=== PATIENT | male | born 1950 | race Hispanic/Latino ===

== ENCOUNTER 2020-02-17 14:02 | Emergency (ER) | payer MEDICARE ==
[2020-02-17] MEDS ORDERED: LIDOCAINE 1%/EPINEPHRINE 1:100,000 VIAL (20 ML) INFILTRATI ONE (14:10)
[2020-02-17] MEDS ORDERED: LIDOCAINE 1%/EPINEPHRINE 1:100,000 VIAL (20 ML) INFILTRATI NR (15:00)
--- NOTE | 2020-02-17 16:05 | Cat Scan Report ---
CT HEAD WITHOUT CONTRAST INDICATION / CLINICAL INFORMATION: Trauma. Patient fell sustaining head injury. Iatrogenic coagulopathy secondary to Plavix. TECHNIQUE: All CT scans at this location are performed using CT dose reduction for ALARA by means of automated e xposure control. COMPARISON: None available. FINDINGS: HEMORRHAGE: No evidence of intracranial hemorrhage or extra-axial fluid collection. EXTRA-AXIAL SPACES: Cortical sulci and sylvian fissures are enlarged reflecting a degree of parenchym al volume loss which is greater than expected for the patient's age. Basilar cisterns have an unremar kable appearance. VENTRICULAR SYSTEM: The third and lateral ventricles are enlarged out of proportion to the cortical s ulci. This probably reflects the presence of central greater than cortical atrophy. CEREBRAL PARENCHYMA: Periventricular and deep white matter lucency is observed. This is probably seco ndary to microvascular ischemic change. There is evidence of remote small deep infarction in the left gangliocapsular region and in the subinsular area on the right. MIDLINE SHIFT OR HERNIATION: There is no mass effect. CEREBELLUM / BRAINSTEM: Brainstem and cerebellum have an unremarkable appearance. INTRACRANIAL VESSELS:Calcified atherosclerotic plaque is present along the course of the cavernous se gments of both internal carotid arteries. Similar findings are seen at the distal vertebral arteries. ORBITS: Patient is status post bilateral cataract surgery. No additional abnormalities are observed o n evaluation of the orbits. SOFT TISSUES of HEAD: No significant abnormality. CALVARIUM: Evaluation of bone windows reveals no abnormalities. PARANASAL SINUSES / MASTOID AIR CELLS: Paranasal sinuses are free from inflammatory mucosal disease. Mastoid air cells are normally pneumatized. ADDITIONAL FINDINGS: None. IMPRESSION: 1. Central greater than cortical parenchymal volume loss greater than expected for patient's age of [age] years. 2. 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 3. No acute intracranial abnormality. Signer Name: Jose Pappas MD Signed: 02/17/2020 4:00 PM Workstation Name: [id number]
--- NOTE | 2020-02-17 16:52 | Emergency Department Report ---
ED Palpitations HPI - General Chief Complaint: Fall Stated Complaint: HEAD LAC/FELL STANDING POSITION Time Seen by Provider: 02/17/20 14:28 Source: patient, EMS Mode of arrival: Stretcher Limitations: No Limitations - History of Present Illness Initial Comments: Patient is a 69-year-old male who is on Plavix who had a ground-level fall prior to arrival. Patient suffered a laceration to the left forehead above the eye which is profusely bleeding and the bleeding was unable to be controlled at home. Patient denies loss of consciousness. States he does have a mild headache around the area of the laceration. Patient has no other complaints at this time. - Related Data Allergies Allergy/AdvReac Type Severity Reaction Status Date / Time No Known Allergies Allergy Verified 02/17/20 14:15 ED Review of Systems ROS: Stated complaint: HEAD LAC/FELL STANDING POSITION Other details as noted in HPI Comment: All other systems reviewed and negative ED Past Medical Hx - Past Medical History Previous Medical History?: Yes Additional medical history: on blood thinners - Social History Smoking Status: Unknown if ever smoked Substance Use Type: None ED Physical Exam - General Limitations: No Limitations General appearance: alert, in no apparent distress - Head Head exam: Present: normocephalic. Absent: atraumatic - Expanded Head Exam Expanded 1 - 2 cm laceration 2 - Large amounts of dried blood over the entire face - Eye Eye exam: Present: normal appearance - ENT ENT exam: Present: mucous membranes moist - Neck Neck exam: Present: normal inspection - Respiratory Respiratory exam: Present: normal lung sounds bilaterally. Absent: respiratory distress, wheezes, rales, rhonchi - Cardiovascular Cardiovascular Exam: Present: regular rate, normal rhythm, normal heart sounds. Absent: systolic murmur, diastolic murmur, rubs, gallop - GI/Abdominal GI/Abdominal exam: Present: soft, normal bowel sounds. Absent: distended, tenderness, guarding - Rectal Rectal exam: Present: deferred - Extremities Exam Extremities exam: Present: normal inspection - Back Exam Back exam: Present: normal inspection - Neurological Exam Neurological exam: Present: alert, oriented X3 - Psychiatric Psychiatric exam: Present: normal affect, normal mood - Skin Skin exam: Present: warm, dry, intact, normal color. Absent: rash ED Course Vital Signs 02/17/20 02/17/20 14:15 14:31 Temperature 98 F Pulse Rate 68 Respiratory 16 Rate Blood Pressure 144/57 O2 Sat by Pulse 96 Oximetry - Laceration /Wound Repair Left Face Wound Location: face Wound Length (cm): 2 Wound's Depth, Shape: linear Wound Explored: clean Irrigated w/ Saline (ccs): 100 Betadine Prep?: Yes Anesthesia: Lidocaine w/ Epi Volume Anesthetic (ccs): 6 Suture Size/Type: 4:0, nylon Number of Sutures: 4 Layer Closure?: No Progress: Bleeding was controlled after sutures were placed ED Medical Decision Making - Radiology Data [facility] [address] [place] [address] Cat Scan Report Signed Patient: NATAN CODY MR#: [id number] 26 : 1950 Acct:[id number] Age/Sex: 69 / M ADM Date: 02/17/20 Loc: ED Attending Dr: Ordering Physician: TAZ HOPPER MD Date of Service: 02/17/20 Procedure(s): CT head/brain wo con Accession Number(s): [id number] cc: TAZ HOPPER MD CT HEAD WITHOUT CONTRAST INDICATION / CLINICAL INFORMATION: Trauma. Patient fell sustaining head injury. Iatrogenic coagulopathy secondary to Plavix. TECHNIQUE: All CT scans at this location are performed using CT dose reduction for ALARA by means of automated exposure control. COMPARISON: None available. FINDINGS: HEMORRHAGE: No evidence of intracranial hemorrhage or extra-axial fluid collection. EXTRA-AXIAL SPACES: Cortical sulci and sylvian fissures are enlarged reflecting a degree of parenchymal volume loss which is greater than expected for the patient's age. Basilar cisterns have an unremarkable appearance. VENTRICULAR SYSTEM: The third and lateral ventricles are enlarged out of proportion to the cortical sulci. This probably reflects the presence of central greater than cortical atrophy. CEREBRAL PARENCHYMA: Periventricular and deep white matter lucency is observed. This is probably secondary to microvascular ischemic change. There is evidence of remote small deep infarction in the left gangliocapsular region and in the subinsular area on the right. MIDLINE SHIFT OR HERNIATION: There is no mass effect. CEREBELLUM / BRAINSTEM: Brainstem and cerebellum have an unremarkable appe arance. INTRACRANIAL VESSELS:Calcified atherosclerotic plaque is present along the course of the cavernous segments of both internal carotid arteries. Similar findings are seen at the distal vertebral arteries. ORBITS: Patient is status post bilateral cataract surgery. No additional abnormalities are observed on evaluation of the orbits. SOFT TISSUES of HEAD: No significant abnormality. CALVARIUM: Evaluation of bone windows reveals no abnormalities. PARANASAL SINUSES / MASTOID AIR CELLS: Paranasal sinuses are free from inflammatory mucosal disease. Mastoid air cells are normally pneumatized. ADDITIONAL FINDINGS: None. IMPRESSION: 1. Central greater than cortical parenchymal volume loss greater than expected for patient's age of 69 years. 2. 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 3. No acute intracranial abnormality. Signer Name: Jose Pappas MD Signed: 02/17/2020 4:00 PM Workstation Name: [id number] - Medical Decision Making Patient is a 69-year-old male suffered a fall and had profuse bleeding from the wound in the left forehead just above the left eye. This wound was closed by me. Please see procedure note. CT head was performed since the patient struck his head and is on blood thinners. No acute intracranial process was found Critical care attestation.: If time is entered above; I have spent that time in minutes in the direct care of this critically ill patient, excluding procedure time. ED Disposition Clinical Impression: Hx of alf use of blood thinners Closed head injury Qualifiers: Encounter type: initial encounter Qualified Code(s): S09.90XA - Unspecified injury of head, initial encounter Facial laceration Qualifiers: Encounter type: initial encounter Qualified Code(s): S01.81XA - Laceration without foreign body of other part of head, initial encounter Disposition: DC-01 TO HOME OR SELFCARE Is pt being admited?: Yes Does the pt Need Aspirin: No Condition: Stable Instructions: Minor Head Injury (ED), Laceration (ED) Additional Instructions: Your sutures will need to be removed and 7 days Referrals: PRIMARY CARE, [Primary Care Provider] - 7-10 days Time of Disposition: 16:56
[2020-02-17 16:53] VITALS: BP 144/59
== END 2020-02-17 17:35 | disposition home or self-care (01) ==
LOC: ED 14:02
DX: S01.81XA Laceration without foreign body of other part of head, initial encounter (principal); S09.90XA Unspecified injury of head, initial encounter; Z79.899 Other long term (current) drug therapy; W18.30XA Fall on same level, unspecified, initial encounter; Y93.89 Activity, other specified; Y92.89 Other specified places as the place of occurrence of the external cause; Y99.8 Other external cause status
CPT/HCPCS: 70450

== ENCOUNTER 2020-09-28 17:47 | Emergency (ER) | payer MEDICARE ==
[2020-09-28] MEDS ORDERED: EPINEPHrine 1 MG/10 ML SYRINGE ONE (17:50)
[2020-09-28] MEDS ORDERED: SODIUM BICARB 8.4% 50 MEQ/50 ML SYRINGE IV ONE (17:50)
[2020-09-28] MEDS ORDERED: DOPamine/D5W 800 MG/250 ML DRIP IV ONE (17:50)
[2020-09-28] MEDS ORDERED: ATROPINE 0.1% (1 MG/10 ML) CARDIAC SYRINGE ONE (17:50)
[2020-09-28] MEDS ORDERED: DOPamine/D5W 800 MG/250 ML 800 MG/250 ML BAG IV ONE (18:11)
--- NOTE | 2020-09-28 18:28 | Emergency Department Report ---
HPI - General Time Seen by Provider: 09/28/20 18:09 - HPI HPI: Room 21 The patient is a 70-year-old male present with a chief complaint of cardiac arrest. Per EMS they received a call for patient choking at home and arrived on scene at 17:12 to find the patient choking. EMS states they attempted Heimlich maneuver but within 15 minutes of arrival the patient went into cardiac arrest. ACLS protocols were initiated however EMS was unable to intubate the patient or establish IV access. Upon arrival to the ED the patient was intubated by myself using a glidescope. ACLS protocols were continued with transient return of spontaneous circulation. However the patient continued to devolve into PEA recalcitrant to ACLS protocols. Patient ED Past Medical Hx - Past Medical History Previous Medical History?: No Additional medical history: on blood thinners - Surgical History Hx Open Heart Surgery: Yes - Family History Family history: no significant - Social History Smoking Status: Unknown if ever smoked Substance Use Type: None ED Review of Systems ROS: Stated complaint: CARDIAC ARREST Other details as noted in HPI Comment: Unobtainable due to pts medical conditions Physical Exam - Physical Exam Physical Exam: GENERAL: The patient is well-developed well-nourished male lying on stretcher receiving chest compressions from EMS. [] HEENT: Normocephalic. Atraumatic. NECK: Supple. Trachea midline CHEST/LUNGS: No spontaneous respirations. Breath sounds equal bilaterally with bagging after intubation by myself HEART/CARDIOVASCULAR: No heart sounds. PEA on monitor ABDOMEN: Abdomen is soft. There is no abdominal distention. SKIN: There is no rash. There is no edema. There is no diaphoresis. NEURO: GCS 3 MUSCULOSKELETAL: There is no evidence of acute injury. - Intubation Time Out Performed: No Laryngoscope: fiberoptic video scope Size: 3 Assist Device Used: fiberoptic device ET Tube Size: 8 Tube Secured Depth (cm): 24 Tube Secured Location: lips Tube Placement Confirmation: visualized tube passing t, equal breath sounds bilat, no breath sounds over epi Patient Tolerated Procedure: no complications Intubation Complications: none ED Medical Decision Making - Differential Diagnosis Cardiac arrest Critical care attestation.: If time is entered above; I have spent that time in minutes in the direct care of this critically ill patient, excluding procedure time. ED Disposition Clinical Impression: Cardiac arrest Disposition: DC-20 Is pt being admited?: No Does the pt Need Aspirin: No Condition: Poor Time of Disposition: 18:24 (Patient )
== END 2020-09-28 22:45 ==
LOC: ED 17:47
DX: I46.9 Cardiac arrest, cause unspecified (principal); Z98.890 Other specified postprocedural states
CPT/HCPCS: 31500; 99285; J0171; J0461; J1265